=== PATIENT | female | born 1970 | race African-American/Black ===

== ENCOUNTER 2021-08-03 11:28 | Emergency (ER) | payer OTHER ==
[~2021-08-03] VITALS: Ht 154.9 cm; Wt 71.7 kg
[~2021-08-03 11:28] MED LIST: COLACE100 MG PO; PRILOSEC20 MG PO; SLOW RELEASE I142 M1 PO; ZYRTEC10 M5 PO
[2021-08-03 12:09] LABS: ABSOLUTE NEUTROPHILS 1.7 thou/uL (1.4-8.2); BASOPHILS 1.2 % (0.0-2.0); EOSINOPHILS 15.1 % (0.0-3.0); HEMATOCRIT 32.4 % (37.0-47.0); HEMOGLOBIN 10.5 gm/dL (12.0-15.0); LYMPHOCYTES 29.5 % (24.0-44.0); MCHC 32.5 g/dL (28.0-37.0); MCV 79.9 fL (80.0-100.0); PLATELET COUNT 329 thou/uL (150-400); POLYS 44.2 % (36.0-66.0); RBC 4.05 mil/uL (4.20-5.00); WBC 3.7 thou/uL (4.0-11.0)
[2021-08-03 12:13] LABS: CALCIUM 8.8 mg/dL (8.5-10.1); CREATININE 0.8 mg/dL (0.6-1.0); POTASSIUM 3.5 mmol/L (3.5-5.1)
[2021-08-03 12:23] LABS: ALBUMIN 3.5 g/dL (3.4-5.0); MAGNESIUM 2.1 mg/dL (1.8-2.4); TOTAL BILIRUBIN 0.8 mg/dL (0.2-1.0); TOTAL PROTEIN 7.3 g/dL (6.4-8.2)
[2021-08-03 12:33] LABS: URINE BILIRUBIN NEGATIVE (Negative); URINE BLOOD 1+ (Negative); URINE CLARITY SL CLOUDY; URINE COLOR YELLOW; URINE GLUCOSE-RANDOM* NEGATIVE (Negative); URINE KETONES NEGATIVE (Negative); URINE LEUKOCYTES-REFLEX NEGATIVE (Negative); URINE NITRITE-REFLEX NEGATIVE (Negative); URINE PROTEIN (DIPSTICK) NEGATIVE (Negative); URINE SPECIFIC GRAVITY >= 1.030 (1.005-1.035); URINE UROBILINOGEN 0.2 E.U./dl (0.2-1.0)
[2021-08-03 12:46] LABS: BACTERIA-REFLEX None Seen /HPF (None Seen); CRYSTALS None Seen /LPF (None Seen); SQUAMOUS >10 Many /LPF (0-3); URINE RBC 1-2 Rare /HPF (NONE SEEN); URINE WBC-REFLEX None Seen /HPF (0-5)
[2021-08-03] MEDS ORDERED: AMOX TR-K CLV1 EAC4 PO (13:02)
[2021-08-03] MEDS ORDERED: MECLIZINE HCL25 M1 PO (13:02)
[2021-08-03 13:05] VITALS: BP 156/90
--- NOTE | 2021-08-03 15:36 | EKG ---
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
== END 2021-08-03 13:10 | disposition home or self-care (01) ==
LOC: ER 11:28
PROVIDERS: Physician Assistant
DX: D64.9 Anemia, unspecified (principal); J01.40 Acute pansinusitis, unspecified; K21.9 Gastro-esophageal reflux disease without esophagitis; Z20.822 Contact with and (suspected) exposure to COVID-19; Z79.899 Other long term (current) drug therapy